=== PATIENT | female | born 1980 | race African-American/Black ===

== ENCOUNTER 2017-07-22 08:39 | Day surgery (SDC) | payer OTHER ==
[2017-07-21 15:18] VITALS: BMI 25.2
[2017-07-22] MEDS ORDERED: BUPIVACAINE HCL/PF 0.5% (5MG/ML) 10 ML VIAL ONE (10:15)
[2017-07-22] MEDS ORDERED: HEPARIN NA (PORCINE) 5,000 UNITS/ML 1ML VIAL ONE (10:15)
[2017-07-22] MEDS ORDERED: PROPOFOL 20 ML ONE ×2 (10:43→11:00)
[2017-07-22] MEDS ORDERED: LIDOCAINE HCL/PF 2% SDV 5ML VIAL ONE ×2 (10:44→11:00)
[2017-07-22] MEDS ORDERED: MIDAZOLAM HCL 2 MG/2 ML SINGLE DOSE VIAL ONE (10:44)
[2017-07-22] MEDS ORDERED: DEXAMETHASONE SOD PHOSPHATE 4 MG/1 ML VIAL ONE (11:00)
[2017-07-22] MEDS ORDERED: ALBUTEROL SO4 18 GM HFA INHALER IH ONE (11:00)
[2017-07-22] MEDS ORDERED: ONDANSETRON 4 MG/2 ML VIAL ONE (11:00)
[2017-07-22] MEDS ORDERED: KETOROLAC TROMETHAMINE 30 MG/1 ML VIAL ONE (11:00)
[2017-07-22] MEDS ORDERED: ceFAZolin SODIUM 1 GM VIAL ONE ×2 (11:04)
[2017-07-22] MEDS ORDERED: SODIUM CHLORIDE 0.9% P/F 10 ML VIAL IJ ONE (11:04)
[2017-07-22] MEDS ORDERED: GLYCOPYRROLATE 0.2 MG/1 ML VIAL ONE (11:48)
[2017-07-22] MEDS ORDERED: NEOSTIGMINE METHYLSULFATE 0.5 MG/ML - 10 ML MDV ONE (11:48)
[2017-07-22] MEDS ORDERED: ONDANSETRON 4 MG/2 ML VIAL IVPUSH PRN (12:08)
[2017-07-22] MEDS ORDERED: oxyCODONE HCL 5 MG TABLET PO PRN ×2 (12:08)
[2017-07-22] MEDS ORDERED: LACTATED RINGERS SOLUTION 1,000 ML IV SCH (12:15)
[2017-07-22] MEDS ORDERED: ONDANSETRON 4 MG/2 ML VIAL IVPUSH ONE (12:50)
[2017-07-22 13:39] VITALS: PULSE 60; TEMP 98.8
[2017-07-22 14:36] VITALS: BP 106/64
--- NOTE | 2017-07-23 13:28 | OP ---
DATE OF OPERATION: 07/22/2017 OPERATION: Laparoscopic right salpingectomy. PREOPERATIVE DIAGNOSIS: Right ectopic . POSTOPERATIVE DIAGNOSIS: Right ectopic . IV FLUIDS: 1500 mL. URINE OUTPUT: 50 mL. BLOOD LOSS: 10 mL. DRAINS & PACKING: None. COMPLICATIONS: None. FINDINGS: Laparoscopic findings included a right-dilated fallopian tube which was dilated with the presence of an ectopic . There were adhesions in the cul-de-sac and inflammatory tissue around the uterus as well as the left fallopian tube. The left fallopian tube seemed to be adhered to the cul-de-sac and the surgery is as follows: DESCRIPTION OF OPERATIVE PROCEDURE: After obtaining an informed consent, the patient was taken to the operating room where general anesthesia was given. The patient was then prepped and draped in the dorsal lithotomy position using Galindo stirrups. A time-out was performed. A Gallardo catheter was in place. A small 5-mm skin incision was made in the umbilicus and then a Veress needle was inserted as a means to distend the peritoneal cavity which was distended to 1500 mmHg. Then 2 trocars were placed at the right lower quadrant and the left lower quadrant after a 5-mm skin incision and after using Marcaine 0.35%. In the pelvic area a DARSHANA uterine manipulator was placed after we confirmed that there was a right ectopic . After a survey which revealed a normal liver and upper abdomen and the findings described above, we proceeded with a right salpingectomy using the ligature which was performed without any issues. After this the specimen was removed through one of the ports that were placed. We then proceeded with obtaining biopsies from the uterine serosa. Two biopsies were sent off for pathology. We then irrigated the pelvis and removed all instruments after noting there was no bleeding. The abdomen incisions were then closed with 4-0 Monocryl. All of the instruments were removed from the patient. The counts were correct x2. The patient was then placed in the dorsal position and was taken to the recovery room in stable satisfactory fashion. EDILBERTO TIWARI M.D. ILIANA/[id number]
--- NOTE | 2017-07-26 17:31 | PATH ---
Surgical Pathology Report Patient Name: FABIO JOHNSON Med. Rec. #: [id number] /Age/Gender: 1980 (Age: 37) / F Account: [id number] Location: [facility] AMBULATORY Taken: 07/22/2017 Received: 07/22/2017 Reported: 07/26/2017 Physicians: Bobby Helton M.D. Specimen(s) Received A: RIGHT FALLOPIAN TUBE, ECTOPIC B: UTERINE ADHESION Clinical History Right ectopic status post intrauterine insemination Final Diagnosis A. RIGHT FALLOPIAN TUBE WITH ECTOPIC , EXCISION: PORTION OF FALLOPIAN TUBE WITH CHORIONIC VILLI AND TROPHOBLASTS, CONSISTENT WITH ECTOPIC TUBAL . B. UTERINE ADHESION, BIOPSY: MEMBRANOUS FIBROTIC TISSUE WITH MILD CHRONIC INFLAMMATORY INFILTRATE AND REACTIVE MESOTHELIAL CELLS. Electronically Signed Rolan Dumont M.D. Gross Description A. Received in formalin labeled "right fallopian tube with ectopic ," is a 3.5 cm in length fimbriated fallopian tube. The outer surface is proctor purple and focally hemorrhagic. Sectioning reveals a focally hemorrhagic lumen. There is a 0.8 x 0.7 x 0.3 cm portion of cai tissue separately received within the same container, possibly consistent with villous tissue. Seasonal Delivery [employer] sections are submitted in 3 cassettes as follows: 1-possible villous tissue; 2-fallopian tube fimbria; 3-cross sections of fallopian tube. B. Received in formalin labeled "uterine adhesion," is a 0.6 x 0.6 x 0.1 cm aggregate of cai soft tissue fragments. The specimen is entirely submitted in one cassette. 07/23/2017 [facility]07/23/2017
== END 2017-07-22 14:41 | disposition home or self-care (01) ==
LOC: FASU 08:39
PROVIDERS: ATTEND Obstetrics & Gynecology Reproductive Endocrinology
PROC: 0UB54ZZ Excision of Right Fallopian Tube, Percutaneous Endoscopic Approach (ICD-10-PCS; 2017-07-22)
PROC: 10T24ZZ Resection of Products of Conception, Ectopic, Percutaneous Endoscopic Approach (ICD-10-PCS; principal; 2017-07-22 11:19)
DX: O00.101 Right tubal pregnancy without intrauterine pregnancy (principal)
CPT/HCPCS: 84703; 88304-TC; 88305-TC; 94760; J1644